=== PATIENT | female | born 1945 | race Caucasian/White ===

== ENCOUNTER → 2017-05-16 | Outpatient (CLI) | payer OTHER, MEDICARE ==
[~2017-05-16] VITALS: Ht 175.3 cm; Wt 99.8 kg
[~2017-05-16] MED LIST: ATIVAN0.5 MG PO; ESCITALOPRAM OX20 MG PO; MAXALT10 MG PO; MOBIC15 MG PO; RED YEAST RICE600 M1 PO; TOPAMAX 25 MG T25 M1 PO; TYLENOL325 MG PO; VOLTAREN GEL 1100 G2 TOP
--- NOTE | ~2017-05-16 | P ---
[facility] [place] [address] PROCEDURE REPORT Name: ISRAEL BLACKMON Room #: [facility].#: [id number] Admission: 05/16/17 Attend Phys: Berhane Munoz MD Discharge: Date of : 49 Report #: [id number] THIS REPORT FOR: //name// CC: Berhane Siu BRIEF HISTORY: The patient is a 71-year-old woman with history of colon polyps, for high risk screening colonoscopy due to history of colon polyps. PREOPERATIVE DIAGNOSIS: High risk screening due to history of colon polyps. POSTOPERATIVE DIAGNOSIS: Normal colonoscopy. MEDICATIONS: Deep sedation with propofol per anesthesia. SPECIMEN: None. ESTIMATED BLOOD LOSS: None. PROCEDURE: Colonoscopy to cecum and terminal ileum. FINDINGS: Prior to propofol sedation, procedure of colonoscopy discussed with the patient as well as potential risks and its complications. She indicates she understands and desires to proceed. DESCRIPTION OF PROCEDURE: With the patient in left lateral decubitus position, digital examination was completed which revealed no abnormalities. Subsequently, the [employer] video colonoscope was introduced into the rectum and passed under direct vision to the cecum. Done with minimal difficulty. The cecum was identified by the ileocecal valve and appendiceal orifice. I was able to visualize the distal segment of the terminal ileum, which was inspected and noted to be unremarkable. At that point, the scope was slowly withdrawn and careful circumferential views obtained including retroflexion of the scope in the ascending colon. Upon slow withdrawal of the scope, the prep was noted to be excellent. The mucosa was within normal limits, normal vascular pattern, normal light reflex. As we withdrew the scope, she had normal-appearing mucosa. No neoplastic or inflammatory changes were seen anywhere in the colon. She had normal colonic mucosa throughout upon withdrawal of the scope. The scope was withdrawn in the rectum. Upon retroflexion, no abnormalities were seen. Scope was withdrawn. The patient tolerated the procedure well. CONDITION OF THE PATIENT UPON DISCHARGE: Following the procedure, the patient drowsy, aroused, conversant and will be discharged home when fully ambulatory. INSTRUCTIONS TO THE PATIENT AND FAMILY AT THE TIME OF DISCHARGE: No neoplastic lesions were seen. We will have her return in 10 years for followup colon exam. [address] [address] PROCEDURE REPORT Name: ISRAEL BLACKMON Room #: [facility].#: [id number] Admission: 05/16/17 Attend Phys: Berhane Munoz MD Discharge: Date of : 49 Report #: [id number] She will otherwise return to care of Dr. Cely Siu. Last colonoscopy was on 06/01/2013. Withdrawal time from the cecum was 13 minutes and 3 seconds. <ELECTRONICALLY SIGNED> By: Berhane Munoz MD 05/18/17 1331 [id number] Berhnae Munoz MD /nt
== END | disposition home or self-care (01) ==
LOC: GI 07:02
DX: Z09 Encounter for follow-up examination after completed treatment for conditions other than malignant neoplasm (principal); Z86.010 Personal history of colon polyps; F32.89 Other specified depressive episodes; F41.8 Other specified anxiety disorders; G43.909 Migraine, unspecified, not intractable, without status migrainosus; Z87.891 Personal history of nicotine dependence; Z96.641 Presence of right artificial hip joint; Z98.890 Other specified postprocedural states; Z88.0 Allergy status to penicillin; Z88.2 Allergy status to sulfonamides; Z88.8 Allergy status to other drugs, medicaments and biological substances; Z79.899 Other long term (current) drug therapy
CPT/HCPCS: 62110; 62900

== ENCOUNTER → 2020-09-13 | Outpatient (CLI) | payer OTHER, MEDICARE | LOC: SJCVC 15:00 | PROVIDERS: ATTEND Internal Medicine Cardiovascular Disease | DX: R94.31 Abnormal electrocardiogram [ECG] [EKG] (principal); R00.2 Palpitations; R42 Dizziness and giddiness; R06.00 Dyspnea, unspecified; E78.00 Pure hypercholesterolemia, unspecified; G43.909 Migraine, unspecified, not intractable, without status migrainosus; Z79.899 Other long term (current) drug therapy; Z82.49 Family history of ischemic heart disease and other diseases of the circulatory system; Z88.2 Allergy status to sulfonamides; Z88.8 Allergy status to other drugs, medicaments and biological substances; Z88.0 Allergy status to penicillin; Z88.1 Allergy status to other antibiotic agents ==

== ENCOUNTER → 2020-09-30 | Outpatient (CLI) | payer OTHER, MEDICARE | LOC: SJCVCIMAG 07:44 | PROVIDERS: ATTEND Internal Medicine Cardiovascular Disease | DX: I08.0 Rheumatic disorders of both mitral and aortic valves (principal); I49.3 Ventricular premature depolarization; R00.0 Tachycardia, unspecified; R00.2 Palpitations; R06.00 Dyspnea, unspecified; R55 Syncope and collapse; E78.00 Pure hypercholesterolemia, unspecified; G43.909 Migraine, unspecified, not intractable, without status migrainosus; Z88.0 Allergy status to penicillin; Z88.8 Allergy status to other drugs, medicaments and biological substances; Z79.82 Long term (current) use of aspirin; Z79.899 Other long term (current) drug therapy; Z87.891 Personal history of nicotine dependence; Z82.49 Family history of ischemic heart disease and other diseases of the circulatory system ==